=== PATIENT | male | born 1985 | race Native Hawaiian/Other Pacific Islander ===

== ENCOUNTER 2019-02-26 10:29 | Outpatient (CLI) | payer OTHER | END 2019-02-26 19:32 | disposition home or self-care (01) | LOC: RAD 10:29 | DX: S29.9XXA Unspecified injury of thorax, initial encounter (principal) ==

== ENCOUNTER 2021-07-04 13:35 | Outpatient (CLI) | payer OTHER ==
[2021-07-04 13:57] LABS: POTASSIUM 4.4 mmol/L (3.6-5.2)
== END 2021-07-04 21:22 | disposition home or self-care (01) ==
LOC: LABW 13:35
PROVIDERS: ATTEND Nurse Practitioner Family
DX: R10.12 Left upper quadrant pain (principal)
CPT/HCPCS: 36415; 80053; 82150; 83690

== ENCOUNTER 2021-07-05 08:32 | Outpatient (CLI) | payer OTHER ==
[2021-07-05 08:44] LABS: PLATELET COUNT 217 K/uL (142-355)
[2021-07-05 08:54] LABS: POTASSIUM 4.1 mmol/L (3.6-5.2)
== END 2021-07-05 19:38 | disposition home or self-care (01) ==
LOC: LABW 08:32
PROVIDERS: ATTEND Nurse Practitioner Family
DX: R10.12 Left upper quadrant pain (principal)
CPT/HCPCS: 36415; 80053; 82150; 83690; 85027